=== PATIENT | male | born 1995 | race Caucasian/White ===

== ENCOUNTER 2017-12-16 14:58 | Emergency (ER) | payer BC ==
[2017-12-16] MEDS ORDERED: Ketorolac Tromethamine 30 MG/ML VIAL ONE (15:47)
[2017-12-16] MEDS ORDERED: Diazepam 5 MG TAB ONE (15:53)
--- NOTE | 2017-12-16 16:11 | CT ---
CT OF THE LUMBAR SPINE WITHOUT CONTRAST 12/16/17 COMPARISON: None. HISTORY: Back pain that started one month ago. Patient jarded earlier today and it hurts worse. TECHNIQUE: Multiple contiguous axial images were obtained in a CT of the lumbar spine without contrast. Sagittal and coronal reformats were performed. FINDINGS: The vertebral bodies and intervertebral discs demonstrate normal height and alignment without fractur e or subluxation. No degenerative changes are seen. There is no bony narrowing of the neural foramina or central canal. The prevertebral and paraspinal soft tissues are unremarkable. IMPRESSION: Normal CT of the lumbar spine. POS: [facility]
== END 2017-12-16 17:24 | disposition home or self-care (01) ==
LOC: ERS 14:58
DX: M54.5 Low back pain (principal)
CPT/HCPCS: 72131; 96372; J1885